=== PATIENT | female | born 1995 | race Caucasian/White ===

== ENCOUNTER 2023-04-15 21:27 | Emergency (ER) | payer MEDICAID ==
[~2023-04-15] VITALS: Ht 154.9 cm; Wt 88.5 kg
[2023-04-15 21:53] VITALS: BP 129/86; PULSE 82; RESP 18; TEMP 97.6; O2SAT 96
[2023-04-15 22:50] VITALS: TEMP 97.6
[2023-04-15 23:43] LABS: BASOPHILS # (AUTO) 0.1 K/uL (0.00-0.22); BASOPHILS % (AUTO) 0.8 % (0.0-2.0); EOSINOPHILS # (AUTO) 0.3 K/uL (0-0.4); EOSINOPHILS % (AUTO) 2.6 % (0.0-4.0); HEMATOCRIT 41.2 % (36-48); HEMOGLOBIN 13.6 g/dL (12.0-16.0); LYMPHOCYTES # (AUTO) 2.8 K/uL (2.5-16.5); LYMPHOCYTES % (AUTO) 25.6 % (20.5-51.1); MEAN CORPUSCULAR HEMOGLOBIN 28 pg (27-31); MEAN CORPUSCULAR HGB CONC 33 g/dL (33-37); MEAN CORPUSCULAR VOLUME 85.9 fL (80-94); MONOCYTES # (AUTO) 0.6 K/uL (0.8-1.0); MONOCYTES % (AUTO) 5.6 % (1.7-9.3); NEUTROPHILS % (AUTO) 65.4 % (42.2-75.2); PLATELET COUNT (AUTO) 243 K/uL (140-450); RED CELL DISTRIBUTION WIDTH 14.9 % (11.6-13.7); WHITE BLOOD COUNT (AUTO) 10.8 K/uL (4.8-10.8)
[2023-04-15 23:58] LABS: ALBUMIN 3.5 g/dL (3.4-5.0); ANION GAP 11.6 (8-16); CALCIUM 8.2 mg/dL (8.5-10.1); CARBON DIOXIDE 27.1 mmol/L (21-32); CREATININE 0.9 mg/dL (0.6-1.3); POTASSIUM 3.7 mmol/L (3.5-5.1); TOTAL BILIRUBIN 0.4 mg/dL (0.0-1.0); TOTAL PROTEIN, SERUM 7.7 g/dL (6.4-8.2)
[2023-04-16] MEDS: KETOROLAC 30 MG/ML VIAL IM ONE (02:37)
[2023-04-16 04:45] VITALS: BP 133/70; PULSE 85; RESP 16; O2SAT 98
== END 2023-04-16 04:45 | disposition home or self-care (01) ==
LOC: MED 21:27
DX: R10.12 Left upper quadrant pain (principal); Z79.899 Other long term (current) drug therapy
CPT/HCPCS: 36415; 76705; 80053; 81025; 83690; 85025; 99285; Q0092; J1885

== ENCOUNTER 2024-03-24 11:13 | Emergency (ER) | payer BC, MEDICAID, OTHER ==
[~2024-03-24] VITALS: Ht 154.9 cm; Wt 88.1 kg
[2024-03-24 11:16] VITALS: BP 131/96; PULSE 96; RESP 16; TEMP 97.2; O2SAT 96
[2024-03-24] MEDS: ACETAMINOPHEN EXTRA STRENGTH 500 MG TAB PO ONE (12:40)
[2024-03-24 12:52] VITALS: BP 129/64; PULSE 79; RESP 19; TEMP 98.4; O2SAT 98
== END 2024-03-24 12:53 | disposition home or self-care (01) ==
LOC: MED 11:13
DX: O26.892 Other specified pregnancy related conditions, second trimester (principal); M54.50 Low back pain, unspecified; R10.30 Lower abdominal pain, unspecified; Z3A.16 16 weeks gestation of pregnancy; W18.39XA Other fall on same level, initial encounter; Y92.89 Other specified places as the place of occurrence of the external cause; Y93.89 Activity, other specified; Y99.8 Other external cause status
CPT/HCPCS: 81002; 99282

== ENCOUNTER 2024-03-27 00:42 | Emergency (ER) | payer OTHER ==
[~2024-03-27] VITALS: Ht 154.9 cm; Wt 87.5 kg
[2024-03-27 01:17] VITALS: BP 129/89; PULSE 81; RESP 16; TEMP 97; O2SAT 98
[2024-03-27 01:30] VITALS: O2SAT 98
[2024-03-27 02:28] LABS: BASOPHILS # (AUTO) 0.1 K/uL (0.00-0.22); BASOPHILS % (AUTO) 0.5 % (0.0-2.0); EOSINOPHILS # (AUTO) 0.4 K/uL (0-0.4); EOSINOPHILS % (AUTO) 3.7 % (0.0-4.0); HEMATOCRIT 38.8 % (36-48); LYMPHOCYTES # (AUTO) 2.8 K/uL (2.5-16.5); LYMPHOCYTES % (AUTO) 25.2 % (20.5-51.1); MEAN CORPUSCULAR HEMOGLOBIN 29 pg (27-31); MEAN CORPUSCULAR HGB CONC 34 g/dL (33-37); MEAN CORPUSCULAR VOLUME 86.5 fL (80-94); MONOCYTES # (AUTO) 0.6 K/uL (0.8-1.0); MONOCYTES % (AUTO) 5.4 % (1.7-9.3); NEUTROPHILS # (AUTO) 7.2 K/uL (1.8-7.7); NEUTROPHILS % (AUTO) 65.2 % (42.2-75.2); PLATELET COUNT (AUTO) 243 K/uL (140-450); RED BLOOD CELL COUNT(AUTO) 4.48 MIL/uL (4.20-5.40); RED CELL DISTRIBUTION WIDTH 14.2 % (11.6-13.7); WHITE BLOOD COUNT (AUTO) 11.1 K/uL (4.8-10.8)
[2024-03-27 02:42] LABS: ALBUMIN 2.8 g/dL (3.4-5.0); ANION GAP 13.3 (8-16); CALCIUM 8.3 mg/dL (8.5-10.1); CARBON DIOXIDE 23.9 mmol/L (21-32); CREATININE 0.6 mg/dL (0.6-1.3); POTASSIUM 3.2 mmol/L (3.5-5.1); TOTAL BILIRUBIN 0.3 mg/dL (0.0-1.0); TOTAL PROTEIN, SERUM 6.9 g/dL (6.4-8.2)
[2024-03-27 02:44] LABS: APPEARANCE,URINE CLEAR (CLEAR); BILIRUBIN,URINE NEGATIVE (NEGATIVE); BLOOD, URINE NEGATIVE (NEGATIVE); COLOR,URINE YELLOW (YELLOW); LEUKOCYTE ESTERASE ,URINE NEGATIVE (NEGATIVE); NITRITE, URINE NEGATIVE (NEGATIVE); PROTEIN,URINE NEGATIVE (NEGATIVE); UGLUCOSE NEGATIVE (NEGATIVE); UROBILINOGEN,URINE 0.2 EU/dL (0.2 - 1)
[2024-03-27 04:44] VITALS: BP 129/89; PULSE 81; RESP 16; TEMP 97; O2SAT 98
== END 2024-03-27 04:38 | disposition home or self-care (01) ==
LOC: MED 00:42
DX: O26.852 Spotting complicating pregnancy, second trimester (principal); O20.9 Hemorrhage in early pregnancy, unspecified; Z3A.16 16 weeks gestation of pregnancy
CPT/HCPCS: 36415; 76805; 80053; 81003; 84702; 85025; 86900; 86901; 99284; Q0092

== ENCOUNTER 2024-05-16 11:23 | Emergency (ER) | payer OTHER ==
[~2024-05-16] VITALS: Ht 154.9 cm; Wt 87.5 kg
[2024-05-16 11:25] VITALS: BP 150/81; PULSE 91; RESP 16; TEMP 97.3; O2SAT 98
[2024-05-16] MEDS: CYCLOBENZAPRINE 10 MG TAB PO ONE (11:52)
[2024-05-16 11:55] VITALS: BP 129/84
[2024-05-16 11:57] LABS: BASOPHILS # (AUTO) 0.1 K/uL (0.00-0.22); BASOPHILS % (AUTO) 0.6 % (0.0-2.0); EOSINOPHILS # (AUTO) 0.3 K/uL (0-0.4); EOSINOPHILS % (AUTO) 3.4 % (0.0-4.0); HEMATOCRIT 38.3 % (36-48); HEMOGLOBIN 12.9 g/dL (12.0-16.0); LYMPHOCYTES # (AUTO) 1.8 K/uL (2.5-16.5); LYMPHOCYTES % (AUTO) 19.6 % (20.5-51.1); MEAN CORPUSCULAR HEMOGLOBIN 29 pg (27-31); MEAN CORPUSCULAR HGB CONC 34 g/dL (33-37); MEAN CORPUSCULAR VOLUME 86.4 fL (80-94); MONOCYTES # (AUTO) 0.4 K/uL (0.8-1.0); NEUTROPHILS # (AUTO) 6.6 K/uL (1.8-7.7); NEUTROPHILS % (AUTO) 72.4 % (42.2-75.2); PLATELET COUNT (AUTO) 259 K/uL (140-450); RED BLOOD CELL COUNT(AUTO) 4.44 MIL/uL (4.20-5.40); RED CELL DISTRIBUTION WIDTH 14.2 % (11.6-13.7); WHITE BLOOD COUNT (AUTO) 9.2 K/uL (4.8-10.8)
[2024-05-16 12:01] LABS: APPEARANCE,URINE CLOUDY (CLEAR); BILIRUBIN,URINE NEGATIVE (NEGATIVE); BLOOD, URINE NEGATIVE (NEGATIVE); LEUKOCYTE ESTERASE ,URINE 2+ (NEGATIVE); NITRITE, URINE NEGATIVE (NEGATIVE); PROTEIN,URINE TRACE (NEGATIVE); UGLUCOSE NEGATIVE (NEGATIVE); UROBILINOGEN,URINE 0.2 EU/dL (0.2 - 1)
[2024-05-16 12:05] LABS: COLOR,URINE AMBER (YELLOW)
[2024-05-16 12:08] LABS: BACTERIA,URINE >30 (MANY) /HPF (None Seen); MUCUS,URINE 1+ /LPF (None Seen); RBC,URINE 0-5 /HPF (0-5); SQUAMOUS EPITHELIAL CELL,UR 4-10 (MOD) /LPF (0-3 (FEW))
[2024-05-16 12:10] LABS: ALBUMIN 2.5 g/dL (3.4-5.0); ANION GAP 11.3 (8-16); CALCIUM 8.2 mg/dL (8.5-10.1); CARBON DIOXIDE 25.2 mmol/L (21-32); CREATININE 0.6 mg/dL (0.6-1.3); POTASSIUM 3.5 mmol/L (3.5-5.1); TOTAL BILIRUBIN 0.3 mg/dL (0.0-1.0); TOTAL PROTEIN, SERUM 6.7 g/dL (6.4-8.2)
[2024-05-16] MEDS ORDERED: CYCL-711 PO (12:30)
[2024-05-16] MEDS ORDERED: CEPH-588 PO (12:30)
[2024-05-16] MEDS ORDERED: LID5T TP (12:30)
[2024-05-16] MEDS: CALCIUM CARB/VIT-D 500 MG/200 IU 1 TAB PO SCH (12:33)
== END 2024-05-16 12:46 | disposition home or self-care (01) ==
LOC: MED 11:23
DX: O99.352 Diseases of the nervous system complicating pregnancy, second trimester (principal); R20.2 Paresthesia of skin; R20.0 Anesthesia of skin; O23.92 Unspecified genitourinary tract infection in pregnancy, second trimester; R82.71 Bacteriuria; Z3A.23 23 weeks gestation of pregnancy; Z79.899 Other long term (current) drug therapy
CPT/HCPCS: 36415; 80053; 81001; 85025; 87086; 99283